=== PATIENT | male | born 1955 | race Caucasian/White ===

== ENCOUNTER 2022-04-17 10:51 | Emergency (ER) | payer MEDICARE, BC, SELFPAY ==
[2022-04-17 11:10] VITALS: BP 150/78; PULSE 81; RESP 18; TEMP 36.9; O2SAT 97; BMI 24.4
== END 2022-04-17 13:38 | disposition left against medical advice (07) ==
LOC: ED 12:51
PROVIDERS: PCP Surgery
DX: Z53.21 Procedure and treatment not carried out due to patient leaving prior to being seen by health care provider (principal)

== ENCOUNTER 2023-08-21 10:01 | Outpatient (RCR) | payer MEDICARE, BC, SELFPAY | END 2023-09-24 13:59 | disposition home or self-care (01) | PROVIDERS: PCP Surgery; Visit Provider Family Medicine | DX: M25.561 Pain in right knee (principal); G89.29 Other chronic pain; M25.551 Pain in right hip; M54.16 Radiculopathy, lumbar region; M54.41 Lumbago with sciatica, right side; Z51.89 Encounter for other specified aftercare | CPT/HCPCS: 97110; 97112; 97162 ==